=== PATIENT | female | born 1945 | race Caucasian/White ===

== ENCOUNTER 2020-05-27 06:24 | Emergency (ER) | payer BC ==
[~2020-05-27] VITALS: Ht 162.6 cm; Wt 70.0 kg
[2020-05-27 06:27] VITALS: TEMP 98.1
[2020-05-27 07:01] LABS: BASO % 0.3 % (0.0-2.0); EOS % 0.3 % (0-4.0); GRAN % 75.8 % (42.2-75.2); HEMATOCRIT 43.5 % (37.0-47.0); HEMOGLOBIN 14.6 g/dl (12.5-16.0); LYMPH # 1.8 (1.2-3.4); LYMPH % 16.6 % (20.0-51.0); MEAN CELL VOLUME 95 fl (80.0-100.0); MEAN CORPUSCULAR HEMOGLOBIN 32 pg (27.0-31.0); MEAN CORPUSCULAR HGB CONC 34 g/dl (33.0-37.0); MEAN PLATELET VOLUME 10.1 fl (7.4-10.4); MONO # 0.7 (0.1-0.6); MONO % 6.5 % (1.7-9.3); PLATELET COUNT 339 K/mm3 (130-400); RED BLOOD COUNT 4.58 M/mm3 (4.10-5.30); REDCELL DISTRIBUTION WIDTH-CV 12.2 % (11.5-14.5)
[2020-05-27 07:13] LABS: ALANINE AMINOTRANSFERASE 33 U/L (4-34); ALBUMIN 4.6 gm/dL (3.5-5.0); ALKALINE PHOSPHATASE 106 U/L (50-136); ANION GAP 11 mmol/L (7-16); AST,SGOT 35 U/L (15-37); BILIRUBIN,TOTAL 0.6 mg/dL (0.0-1.0); BLOOD UREA NITROGEN 16 mg/dL (7-17); CALCIUM 9.2 mg/dL (8.4-10.2); CARBON DIOXIDE 22 mmol/L (22-30); CHLORIDE 107 mmol/L (98-107); CREATININE, serum 0.93 (0.52-1.25); GLUCOSE 146 mg/dL (74-106); LIPASE 59 U/L (23-300); MAGNESIUM 2.1 mg/dL (1.6-2.3); POTASSIUM 3.7 mmol/L (3.4-5.0); SODIUM 140 mmol/L (137-145); TOTAL PROTEIN 7.8 gm/dL (6.4-8.2)
[2020-05-27 07:14] LABS: C-REACTIVE PROTEIN < 0.5 mg/dL (0.0-0.9)
[2020-05-27] MEDS ORDERED: ULTRAM 50MG TAB50 MG PO (07:26)
[2020-05-27] MEDS ORDERED: AMITRIPTYLINE H50 M1 PO (07:27)
[2020-05-27 07:49] LABS: COLLECTION METHOD CLEAN CATCH
[2020-05-27 08:02] LABS: MUCOUS Present /lpf; PH 6 (5-8); SQUAMOUS EPITHELIAL 0-2 /hpf; URINE APPEARANCE Clear; URINE BACTERIA Rare /hpf; URINE BILIRUBIN Negative (NEGATIVE); URINE BLOOD 3+ (NEGATIVE); URINE COLOR Yellow; URINE GLUCOSE Negative (NEGATIVE); URINE KETONE Negative (NEGATIVE); URINE LEUKOCYTE ESTERASE Negative (NEGATIVE); URINE NITRATE Positive (NEGATIVE); URINE PROTEIN(semi-quant) Negative (NEGATIVE); URINE RBC 20-50 /hpf; URINE UROBILINOGEN Negative (NEGATIVE)
[2020-05-27] MEDS ORDERED: NORCO 325 MG-51 TAB PO (08:47)
[2020-05-27] MEDS ORDERED: OMNICEF 300MG300 MG PO (08:47)
[2020-05-27 09:30] VITALS: BP 146/89; PULSE 119
== END 2020-05-27 09:32 | disposition home or self-care (01) ==
LOC: COL.ER 06:24
PROVIDERS: Emergency Medicine
DX: N20.1 Calculus of ureter (principal); N39.0 Urinary tract infection, site not specified; Z85.3 Personal history of malignant neoplasm of breast
CPT/HCPCS: J0696; J2270; J2405; J7030; Q9967

== ENCOUNTER 2022-01-17 13:49 | Inpatient (IN) | payer MEDICARE, BC ==
[~2022-01-17] VITALS: Ht 162.6 cm; Wt 73.1 kg
[~2022-01-17 13:49] MED LIST: AMITRIPTYLINE H50 M1 PO; NORCO 325 MG-51 TAB PO; OMNICEF 300MG300 MG PO; ULTRAM 50MG TAB50 MG PO
[2022-01-17 14:54] LABS: BASO # 0.1 K/mm3 (0.0-0.2); BASO % 0.2 % (0.0-2.0); EOS % 0.2 % (0.0-4.0); GRAN # 17.2 K/mm3 (1.4-6.5); GRAN % 84.3 % (42.2-75.2); HEMATOCRIT 42.8 % (37.0-47.0); HEMOGLOBIN 14.6 g/dl (12.5-16.0); LYMPH # 1.6 K/mm3 (1.2-3.4); MEAN CELL VOLUME 93 fl (80.0-100.0); MEAN CORPUSCULAR HEMOGLOBIN 32 pg (27-31); MEAN CORPUSCULAR HGB CONC 34 g/dl (33.0-37.0); MEAN PLATELET VOLUME 9.7 fl (7.4-10.4); MONO # 1.3 K/mm3 (0.1-0.6); MONO % 6.5 % (1.7-9.3); PLATELET COUNT 329 K/mm3 (130-400); RED BLOOD COUNT 4.58 M/mm3 (4.10-5.30); REDCELL DISTRIBUTION WIDTH-CV 12.4 % (11.5-14.5)
[2022-01-17 15:14] LABS: ALANINE AMINOTRANSFERASE 41 U/L (0-55); ALBUMIN 3.5 gm/dL (3.4-4.8); ALKALINE PHOSPHATASE 86 U/L (40-150); ANION GAP 14 mmol/L (7-16); AST,SGOT 19 U/L (5-34); BILIRUBIN,TOTAL 1.6 mg/dL (0.2-1.2); BLOOD UREA NITROGEN 17 mg/dL (10-20); C-REACTIVE PROTEIN 19.27 mg/dL (0.00-0.50); CARBON DIOXIDE 18 mmol/L (23-31); CHLORIDE 104 mmol/L (98-107); CREATININE, serum 0.83 mg/dL (0.57-1.11); GLUCOSE 116 mg/dL (70-99); POTASSIUM 4.1 mmol/L (3.5-4.5); SODIUM 136 mmol/L (136-145); TOTAL PROTEIN 7.6 gm/dL (6.2-8.1)
[2022-01-17 15:24] LABS: TROPONIN-I < 0.010 ng/mL (0.00-0.033)
[2022-01-17 19:13] VITALS: BP 150/80; PULSE 118; TEMP 98.9
[2022-01-17 19:46] LABS: COLLECTION METHOD CLEAN CATCH
[2022-01-17 19:51] LABS: PH 5 (5-8); SQUAMOUS EPITHELIAL None Seen /hpf (0-10); URINE APPEARANCE Clear (CLEAR/HAZY); URINE BACTERIA Rare /hpf (NONE SEEN); URINE BILIRUBIN Negative (NEGATIVE); URINE BLOOD 1+ (NEGATIVE); URINE COLOR Yellow (YELLOW); URINE GLUCOSE Negative (NEGATIVE); URINE KETONE Trace (NEGATIVE); URINE LEUKOCYTE ESTERASE Negative (NEGATIVE); URINE NITRATE Negative (NEGATIVE); URINE PROTEIN(semi-quant) Negative (NEGATIVE); URINE RBC 0-2 /hpf (0-2); URINE UROBILINOGEN >=4.0 (NEGATIVE); URINE WBC 0-2 /hpf (0-2)
--- NOTE | 2022-01-17 22:34 | NUR ---
Pt brought up from ED around 1900. Pt ambulated from wheelchair to bathroom to void then to bed independently. Steady gate. Pt currently denies chest pain/SOB/dizziness/nausea/vomiting. Pt was a little SOB on exertion, but it stopped at rest. Pt came up on 2L NC and was satting at 88%, titrated pt up to 3L NC. VS stable. Shift assessment performed. Previous dayshift RN completed admission intake and admission assessment, but I went back through both and re-did them when pt came to unit. Med rx reviewed with pt. Pt reports she takes no at home medications. Allx reviewed. COVID and infectious disease screns completed. Obtained a respiratory virus panel swab, UA/urine culture from pt. Left pt with sputum cup for a sputum culture and educated pt on purpose. Pt was placed on temporary droplet/contact isolation, but has since been removed because the respiratory virus panel was negative. Lungs sounds were clear/diminished. Pt denies blood in the sputum. Abdomen soft/nondistended. No diaphoresis. Medications administered per orders and education provided. Continuing with ordered IV antibx. Nourishment provided to pt. Pt tolerating PO. Pt reports no questions at this time, will continue to monitor.
--- NOTE | 2022-01-17 23:05 | NUR ---
Vancomycin Initial Dosing Pharmacy Note Ordering provider: Austin Bird MD Indication/duration: Sepsis w/ concern for PNA Relevant comorbidities: N/A LABS: WBC = 20.5, SCr = 0.83 Recommendation: Will draw troughs and follow levels. Loading dose: 1.5 grams Maintenance dose: 750 mg every 12 hours Trough goal: 15-20 ug/mL
[2022-01-18 04:22] VITALS: BP 121/56; PULSE 85; TEMP 98.5
--- NOTE | 2022-01-18 05:07 | NUR ---
No adverse events overnight. Pt alert and oriented when awake, resting currently. Continuing with IV antibx and IV fluids. Denying pain. Denies SOB/dizziness. Up to void with assistance overnight. Continuing on 3L NC, oxyegn in 90's. VS stable. Afebrile overnight. Pt does not report any questions, will continue to monitor.
[2022-01-18 07:13] LABS: BASO % 0.3 % (0.0-2.0); EOS # 0.2 K/mm3 (0.0-0.7); EOS % 1.1 % (0.0-4.0); GRAN # 11.3 K/mm3 (1.4-6.5); GRAN % 80.6 % (42.2-75.2); HEMATOCRIT 38.3 % (37.0-47.0); HEMOGLOBIN 12.7 g/dl (12.5-16.0); LYMPH # 1.4 K/mm3 (1.2-3.4); LYMPH % 10.3 % (20.0-51.0); MEAN CELL VOLUME 97 fl (80.0-100.0); MEAN CORPUSCULAR HEMOGLOBIN 32 pg (27-31); MEAN CORPUSCULAR HGB CONC 33 g/dl (33.0-37.0); MEAN PLATELET VOLUME 10.3 fl (7.4-10.4); MONO % 7.1 % (1.7-9.3); PLATELET COUNT 288 K/mm3 (130-400); RED BLOOD COUNT 3.96 M/mm3 (4.10-5.30); REDCELL DISTRIBUTION WIDTH-CV 12.4 % (11.5-14.5)
[2022-01-18 07:31] LABS: ALBUMIN 2.7 gm/dL (3.4-4.8); CALCIUM 8.2 mg/dL (8.4-10.2); CREATININE, serum 0.83 mg/dL (0.57-1.11); MAGNESIUM 2.2 mg/dL (1.6-2.6); PHOSPHOROUS 2.3 mg/dL (2.3-4.7); POTASSIUM 3.8 mmol/L (3.5-4.5)
[2022-01-18 07:34] VITALS: BP 120/40; PULSE 90; TEMP 98.8
[2022-01-18 11:17] VITALS: BP 109/52; PULSE 86; TEMP 98.2
--- NOTE | 2022-01-18 14:28 | NUR ---
SW met with pt to complete intake. Pt lives at home with adult son. Pt reports she still drives and is independent on all ADLs and does not use any DMEs. Her Nk is her Granddaughter Josee @ [phone]. PcP is Dr. Jensen and gets medications from [facility]. Pt reports no DPOA-HC and is not interested in one at this time. No other needs stated at this time. Sw to await further recommendations and follow up as needed. DC: Home.
[2022-01-18 15:38] VITALS: BP 134/56; PULSE 86; TEMP 98.7
--- NOTE | 2022-01-18 20:30 | NUR ---
Initial shift assessment done- pleasant, alert/oriented x4, VSS, o2 at 92% RA, still has cough, also would like something to help sleep, Up to bathroom on own-voiding without problems, tele on, also will call about no VTE orders.
[2022-01-18 20:41] VITALS: BP 150/78; PULSE 92; TEMP 98.7
[2022-01-18 23:56] VITALS: BP 119/78; PULSE 91; TEMP 98.7
[2022-01-19 04:15] VITALS: BP 109/62; PULSE 77; TEMP 98.1
--- NOTE | 2022-01-19 06:30 | NUR ---
o2 sats stayed around 92% all night- no o2 on,, VSS, states cough medicine did help during the night-- given x2
[2022-01-19 07:17] VITALS: BP 139/61; PULSE 73; TEMP 98.2
[2022-01-19 07:27] VITALS: BP 121/43; PULSE 57; TEMP 97.7
[2022-01-19 07:29] LABS: BASO % 0.4 % (0.0-2.0); EOS # 0.2 K/mm3 (0.0-0.7); EOS % 1.9 % (0.0-4.0); GRAN # 7.8 K/mm3 (1.4-6.5); GRAN % 73.4 % (42.2-75.2); HEMOGLOBIN 12.4 g/dl (12.5-16.0); LYMPH # 1.6 K/mm3 (1.2-3.4); LYMPH % 15.1 % (20.0-51.0); MEAN CELL VOLUME 95 fl (80.0-100.0); MEAN CORPUSCULAR HEMOGLOBIN 32 pg (27-31); MEAN CORPUSCULAR HGB CONC 34 g/dl (33.0-37.0); MEAN PLATELET VOLUME 10.3 fl (7.4-10.4); MONO # 0.9 K/mm3 (0.1-0.6); MONO % 8.4 % (1.7-9.3); PLATELET COUNT 341 K/mm3 (130-400); RED BLOOD COUNT 3.88 M/mm3 (4.10-5.30); REDCELL DISTRIBUTION WIDTH-CV 12.2 % (11.5-14.5)
[2022-01-19 07:31] LABS: HEMATOCRIT 36.8 % (37.0-47.0)
[2022-01-19 07:44] LABS: ALBUMIN 2.6 gm/dL (3.4-4.8); CALCIUM 8.2 mg/dL (8.4-10.2); CREATININE, serum 0.76 mg/dL (0.57-1.11); MAGNESIUM 2.2 mg/dL (1.6-2.6); PHOSPHOROUS 2.2 mg/dL (2.3-4.7); POTASSIUM 3.7 mmol/L (3.5-4.5)
[2022-01-19] MEDS ORDERED: DOXYCYCLINE HY100 MG PO (09:22)
[2022-01-19] MEDS ORDERED: AMOXICILLIN 8751 TAB PO (09:22)
[2022-01-19] MEDS ORDERED: PROBIOTIC BLEN1 EACH PO (09:23)
[2022-01-19] MEDS ORDERED: TESSALON P100 MG/CAP PO (09:25)
--- NOTE | 2022-01-19 10:15 | NUR ---
PATIENT COMPLETED WALK AROUND UNIT WITH RT SUCCESSFULLY. WAS ABLE TO MAINTAIN 02 SAT AND DENIES SOA, CHEST PAIN OR ANY OTHER DIFFICULTIES.
[2022-01-19 11:35] VITALS: BP 154/71; PULSE 80; TEMP 97.9
== END 2022-01-19 12:55 | disposition home or self-care (01) | DRG 871 ==
LOC: COL.ER 13:49 → MEDICAL 16:00
PROVIDERS: Nurse Practitioner; ADMIT Internal Medicine
DX: A41.9 Sepsis, unspecified organism (principal); J96.01 Acute respiratory failure with hypoxia; J21.9 Acute bronchiolitis, unspecified; J98.11 Atelectasis; J47.9 Bronchiectasis, uncomplicated; Z20.822 Contact with and (suspected) exposure to COVID-19; Z85.3 Personal history of malignant neoplasm of breast; Z87.442 Personal history of urinary calculi
CPT/HCPCS: 99223-AI; 99232-AI; J0696; J1644; J2543; J3370; J7030; J7050; Q9967